=== PATIENT | male | born 1935 | race Caucasian/White ===

== ENCOUNTER 2016-06-23 10:11 | Inpatient (IN) | payer MEDICARE, OTHER ==
--- NOTE | ~2016-06-23 | HP ---
History And Physical [address] [address] NAME: DAYDAY SALINAS : 35 STATUS : ADM IN [facility]#: [id number] AGE: 80 ADM/REG DATE : 06/23/16 MR#: [id number] REPORT SERV DATE: 06/23/16 DICTATED BY: STEVIE GARCIA DATE: 06/23/16 REPORT STATUS : Draft TRANSCRIBED BY: MODL DATE: 06/23/16 DATE OF ADMISSION: 06/23/2016 CHIEF COMPLAINT: Shortness of breath. HISTORY OF PRESENT ILLNESS: The patient is an 80-year-old white male, who presented to [facility] with complaints of shortness of breath that has been progressive over the last two days. He reported that he is at baseline shortness of breath and uses 3 L of nasal cannula O2 in the home setting, but over the last two days, he has had significant shortness of breath and progressively getting worse. He is unable to lie flat in his bed. He has had some cough that is nonproductive of any sputum. He denies any fevers or chills. He has not had any chest pain per se. He denies any abdominal pain, nausea, or vomiting. He denies any paroxysmal nocturnal dyspnea as well. When he arrived at [facility], he was found to have more hypoxia and found to have an elevated BNP, and troponins were negative. He was thought to have congestive heart failure, so he has been referred to the hospital here for further treatment and evaluation. REVIEW OF SYSTEMS: Otherwise, 12-point review of systems is negative. 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 He also had a CVA in 1999 without any residual and obstructive sleep apnea and right carotid stenosis about 65%, no intervention at this time. He has hypothyroidism as well. PAST SURGICAL HISTORY: Significant for CABG x5 in 2006, left carotid endarterectomy in 2006, bilateral cataract surgery. ALLERGIES: CODEINE. HOME MEDICATIONS: Glipizide 10 mg once daily, Plavix 75 mg once daily, levothyroxine 50 mcg once daily, lisinopril 20 mg once daily, atenolol 25 mg once daily, Spiriva one capsule inhalation once daily, Invokana 100 mg once daily, NovoLog subcu 10 units prior to each meal, Lantus 20 units subcu at bedtime. SOCIAL HISTORY: He smoked up until age 55. He was smoking one to three packs per day since the age of 10s for a total of 45 years of smoking history. He denies use of alcohol or illicit substances. He is retired at this time. FAMILY HISTORY: Significant for a heart disease in the mother. PHYSICAL EXAMINATION: GENERAL: White male, sitting on the bed, appears to be in [id number] respiratory distress. He is awake and alert. He is oriented. VITAL SIGNS: Blood pressure upon arrival to the hospital 145/65; saturation of 94% on 3 L, History And Physical [id number] [place]. [address] NAME: DAYDAY SALINAS : 35 STATUS : ADM IN [facility]#: [id number] AGE: 80 ADM/REG DATE : 06/23/16 MR#: [id number] REPORT SERV DATE: 06/23/16 DICTATED BY: STEVIE GARCIA DATE: 06/23/16 REPORT STATUS : Draft TRANSCRIBED BY: WILFREDO DATE: 06/23/16 which is his baseline at home; temperature 97.3; pulse of 103. HEENT: Head is normocephalic and atraumatic. Pupils are equal, round, and reactive to light. Extraocular muscles are intact. Sclerae are anicteric. Conjunctivae are normal. Oropharynx without lesion. Dried mucous membranes. No lesions in the oropharynx. NECK: Supple. No jugular venous distention. No carotid bruits or thyromegaly is appreciated. Left carotid endarterectomy is noted. HEART: CABG scar is noted. Regular rate and rhythm. There is mild tachycardia. No murmurs, rubs, or gallops. PMI just inside the anterior axillary line. LUNGS: Diffuse bilateral crackles with wheezing and expiratory rhonchi are noted. No evidence of any focal consolidation. ABDOMEN: Slightly obese, soft, nontender. Good bowel sounds. No rebound or guarding. No organomegaly. EXTREMITIES: Without cyanosis or clubbing. 1+ edema in the left and 2+ edema in the right. Pulses equal and symmetrical. Otherwise, no lesions in the lower extremities. NEUROLOGICAL: Seems to be grossly intact. LABORATORY DATA: Labs as obtained from [facility], influenza was negative. White count was 21,000; hemoglobin of 14; hematocrit of 42; platelet count is 210,000. No left shift. Sodium 129, potassium of 4.1, chloride 92, bicarb 23, BUN is 24, creatinine is 1.36, glucose of 287, calcium of 9.8. Liver function studies are unremarkable. BNP was 3348. Lactic acid was 2.9. Troponin x2 was normal according to parameters at [facility]. EKG, new right bundle-branch block. No acute ST-T wave changes. IMPRESSION: 1. Acute on chronic systolic congestive heart failure, present on admission. 2. Acute on chronic hypoxic respiratory failure, present on admission. 3. Acute exacerbation of chronic obstructive pulmonary disease. 4. Hypertension. 5. Frd-sypscsb-vxdmtwlls diabetes. 6. Coronary artery disease, status post CABG. 7. Peripheral arterial disease, status post left CEA. 8. Hypothyroidism. PLAN: The patient will be admitted. IV Solu-Medrol will be given. IV Bumex will be given. Two-dimensional echocardiogram will be done. Serial troponins will be done. We will put the patient on aggressive nebulizing treatment. Sliding scale and Lantus insulin will be used. We will repeat labs and x-rays again. The patient remains a DNR. PAT/WILFREDO Stevie Garcia M.D. / [id number] History And Physical [address] [address] NAME: DAYDAY SALINAS : 35 STATUS : ADM IN [facility]#: [id number] AGE: 80 ADM/REG DATE : 06/23/16 MR#: [id number] REPORT SERV DATE: 06/23/16 DICTATED BY: STEVIE GARCIA DATE: 06/23/16 REPORT STATUS : Draft TRANSCRIBED BY: MODL DATE: 06/23/16 CC: Bouchra Mathis Timothy M James Hoback Jr., M.D.
--- NOTE | ~2016-06-23 | DS ---
Discharge Summary [facility] [address] [place]. [address] NAME: DAYDAY SALINAS : 35 STATUS : DIS IN PAT#: [id number] AGE: 80 ADM/REG DATE : 06/23/16 MR#: [id number] REPORT SERV DATE: 06/27/16 DICTATED BY: VENUS SHEADAYDAY SCOTT DATE: 06/26/16 REPORT STATUS : Draft TRANSCRIBED BY: MODL DATE: 06/26/16 ADMISSION DATE: 06/23/2016 DISCHARGE DATE: 06/26/2016 DISCHARGE DIAGNOSES: 1. Acute on chronic systolic CHF, EF 45%. 2. Acute exacerbation of chronic obstructive pulmonary disease. 3. Acute on chronic hypoxic respiratory failure. 4. Diabetes mellitus type 2. 5. Hypertension. 6. Acute kidney injury. 7. History of coronary artery disease and peripheral artery disease. 8. History of obstructive sleep apnea. 9. History of hypothyroidism. BRIEF HISTORY OF PRESENT ILLNESS: The patient is an 80-year-old male with the above history, who presented to [facility] due to shortness of breath and edema. For detailed history and physical examination, please see Dr. Steven's note from 06/23/2016. HOSPITAL COURSE: After admission, the patient was found to have acute respiratory failure, likely secondary to a combination of acute exacerbation of COPD plus CHF exacerbation. His chest x-ray showed no infiltrates but persistent hyperexpansion consistent with history of chronic obstructive pulmonary disease. His BNP was elevated at 247. He was diuresed as well as placed on steroids, DuoNebs, and inhalers. He is on 3 L at home and currently is stable on 3 L. Does still have some dyspnea with exertion. His edema is improved and was likely somewhat over-diuresed as his creatinine went from 1.7 up to 2.17 before coming back down to 1.9 with a small amount of IV fluid. He had been receiving lisinopril which was discontinued due to his EDWAR. He does not have any p.r.n. diuretic at home, so we will send him home with Bumex 1 mg p.o. daily p.r.n. edema. He will continue his steroid taper and will need close followup with his primary care physician, Dr. Archuleta, to repeat a BMP in the next week. Otherwise, the patient is stable for discharge. DISCHARGE MEDICATIONS: 1. Atenolol 25 mg p.o. daily. 2. Plavix 75 mg p.o. daily. 3. NovoLog 10 units subcu at bedtime. 4. Lantus 36 units subcu at bedtime. 5. Synthroid 50 mcg p.o. daily. 6. Singulair 10 mg p.o. daily. 7. Ventolin p.r.n. 8. Breo Ellipta one puff inhaled daily. 9. Glipizide 15 mg p.o. b.i.d. 10.Spiriva one cap inhaled daily. 11.DuoNeb 1 neb t.i.d. 12.Prednisone taper over 3 days. 13.Bumex 1 mg p.o. daily p.r.n. edema. Discharge Summary [address] [address] NAME: DAYDAY SALINAS : 35 STATUS : DIS IN PAT#: [id number] AGE: 80 ADM/REG DATE : 06/23/16 MR#: [id number] REPORT SERV DATE: 06/27/16 DICTATED BY: DAYDAY DONOVAN II DATE: 06/26/16 REPORT STATUS : Draft TRANSCRIBED BY: WILFREDO DATE: 06/26/16 14.His Invokana will be held given his EDWAR, defer to PCP for restarting. DISCHARGE INSTRUCTIONS: The patient will need to follow up with his PCP, Dr. Archuleta, in one week for followup BMP. PARISH/WILFREDO Dayday Donovan II, MD / [id number] CC: MD Mika Hare II, M.D.
[~2016-06-23 10:11] MED LIST: ADVAIR100 INH; ADVAIR250 INH; ATEN25 PO; BUM1 PO; GLUCOTRO10 PO; HALF81 PO; KLOR-CON M2020 MEQ PO; LANTUSCART SC; LEVOTHYROXIN50 MCG PO; NOVOLOG SC; PLAVIX PO; PRIN20 PO; SPIRIVA INH; VYTORIN 10/20 T1 TAB PO; ZYRTEC ALLGY10 MG PO
[2016-06-23] MEDS ORDERED: BREO ELLIPTA INH (13:39)
[2016-06-23] MEDS ORDERED: P10 PO (13:39)
[2016-06-23] MEDS ORDERED: SINGULAIR1 PO (13:39)
[2016-06-23] MEDS ORDERED: PLAVIX PO ×2 (13:40→13:41)
[2016-06-23] MEDS ORDERED: ATEN25 PO (13:40)
[2016-06-23] MEDS ORDERED: LEVOTHYROXIN50 MCG PO (13:40)
[2016-06-23] MEDS ORDERED: INVOKANA100 MG PO (13:41)
[2016-06-23] MEDS ORDERED: GLUCOTROL5 PO (13:41)
[2016-06-23] MEDS ORDERED: PRIN20 PO (13:41)
[2016-06-23] MEDS ORDERED: LANTUSCART SC (13:42)
[2016-06-23] MEDS ORDERED: NOVOPEN SC (13:42)
[2016-06-23] MEDS ORDERED: DUONEB INH (13:43)
[2016-06-23] MEDS ORDERED: SPIRIVA INH (13:43)
[2016-06-23] MEDS ORDERED: VENTOLIN HFA PO (13:43)
[2016-06-23 14:13] LABS: TROPONIN I 0.04 NG/ML (<0.05); ULTRASENSITIVE TSH 0.68 MCIU/ML (0.358-3.740)
[2016-06-23 15:19] LABS: PROCALCITONIN 0.45 ng/mL (<0.5)
[2016-06-24 05:55] LABS: BASOPHILS 0 %; BASOPHILS ABSOLUTE 0.01 10/3/uL (0.0-0.16); EOSINOPHILS 0 %; IMMATURE GRANULOCYTES 0.3 %; IMMATURE GRANULOCYTES ABSOLUTE 0.06 10/3/uL (0.0-0.11); LYMPHOCYTES 6.3 %; LYMPHOCYTES ABSOLUTE 1.27 10/3/uL (0.67-4.30); MEAN CORPUS HGB CONC 33.9 g/dL (32.0-36.0); MEAN CORPUSCULAR HEMOGLOB 30.6 pg (26.0-34.0); MEAN CORPUSCULAR VOLUME 90.4 fL (80-100); MEAN PLATELET VOLUME 11.2 fL (9.2-13.0); MONOCYTES 1.7 %; MONOCYTES ABSOLUTE 0.35 10/3/uL (0.21-1.20); NEUTROPHILS 91.7 %; NEUTROPHILS ABSOLUTE 18.48 10/3/uL (2.02-8.40); PLATELET COUNT 248 10/3/uL (150-400); RBC DISTRIBUTION WIDTH 13.4 % (12.0-16.0); RED CELL COUNT 4.57 10/6/uL (4.7-6.1)
[2016-06-24 05:56] LABS: HEMATOCRIT 41.3 % (40.0-51.0); MANUAL DIFF NO %; WHITE BLOOD CELLS 20.2 10/3/uL (4.5-10.5)
[2016-06-24 06:21] LABS: ALBUMIN 3.2 G/DL (3.5-5.0); CHLORIDE, SERUM 100 MMOL/L (96-112); CO2 (CARBON DIOXIDE) 27 MMOL/L (24-34); CREATININE 1.71 MG/DL (0.70-1.30); GFR AFRICAN AMERICAN 43 ML/MIN (>=60); GFR NON AFRICAN AMERICAN 37 ML/MIN (>=60); PHOSPHORUS, SERUM 4.7 MG/DL (2.5-4.5); POTASSIUM, SERUM 4.2 MMOL/L (3.5-5.3); SODIUM, SERUM 137 MMOL/L (135-148); TROPONIN I 0.04 NG/ML (<0.05)
[2016-06-24 06:22] LABS: BUN (BLOOD UREA NITROGEN) 43 MG/DL (6-23); CALCIUM, SERUM 9.8 MG/DL (8.5-10.4); GLUCOSE, SERUM 151 MG/DL (60-99)
[2016-06-25 02:58] LABS: BASOPHILS 0.1 %; BASOPHILS ABSOLUTE 0.01 10/3/uL (0.0-0.16); EOSINOPHILS 0 %; HEMOGLOBIN 15.5 g/dL (13.6-17.8); IMMATURE GRANULOCYTES 0.4 %; IMMATURE GRANULOCYTES ABSOLUTE 0.06 10/3/uL (0.0-0.11); LYMPHOCYTES 5.7 %; LYMPHOCYTES ABSOLUTE 0.79 10/3/uL (0.67-4.30); MEAN CORPUS HGB CONC 34.1 g/dL (32.0-36.0); MEAN CORPUSCULAR HEMOGLOB 31.1 pg (26.0-34.0); MEAN CORPUSCULAR VOLUME 91.2 fL (80-100); MEAN PLATELET VOLUME 11.3 fL (9.2-13.0); MONOCYTES 2.8 %; MONOCYTES ABSOLUTE 0.38 10/3/uL (0.21-1.20); NEUTROPHILS ABSOLUTE 12.53 10/3/uL (2.02-8.40); PLATELET COUNT 291 10/3/uL (150-400); RBC DISTRIBUTION WIDTH 13.2 % (12.0-16.0); RED CELL COUNT 4.99 10/6/uL (4.7-6.1); WHITE BLOOD CELLS 13.8 10/3/uL (4.5-10.5)
[2016-06-25 03:00] LABS: ALLENS TEST Pos; BE (BASE EXCESS) 1.3 MEQ/L (0 +/- 2.5); CARBOXYHEMOGLOBIN 0.2 % (0-3); DEVICE NC; HCO3 (ACTUAL BICARBONATE) 27.3 MEQ/L (23-27); HEMOBLOGIN CONTENT 15.8 G/DL (14-18); INSTRUMENT SERIAL # 35151; METHEMOGLOBIN 0.5 % (0-3); OPERATOR ID 30014; PCO2 (CO2 TENSION) 48 MMHG (35-45); PO2 (O2 TENSION) 81 MMHG (79-93); SAMPLE Arterial; pH 7.37 (7.37-7.43)
[2016-06-25 03:01] LABS: HEMATOCRIT 45.5 % (40.0-51.0); MANUAL DIFF NO %
[2016-06-25 03:15] LABS: CHLORIDE, SERUM 94 MMOL/L (96-112); CO2 (CARBON DIOXIDE) 29 MMOL/L (24-34); CREATININE 2.17 MG/DL (0.70-1.30); GFR AFRICAN AMERICAN 32 ML/MIN (>=60); GFR NON AFRICAN AMERICAN 28 ML/MIN (>=60); POTASSIUM, SERUM 4.8 MMOL/L (3.5-5.3); SODIUM, SERUM 135 MMOL/L (135-148)
[2016-06-25 03:30] LABS: BUN (BLOOD UREA NITROGEN) 62 MG/DL (6-23); GLUCOSE, SERUM 382 MG/DL (60-99)
[2016-06-26 06:30] LABS: BASOPHILS 0.1 %; BASOPHILS ABSOLUTE 0.02 10/3/uL (0.0-0.16); EOSINOPHILS 0 %; HEMATOCRIT 43.7 % (40.0-51.0); HEMOGLOBIN 14.6 g/dL (13.6-17.8); IMMATURE GRANULOCYTES 0.8 %; IMMATURE GRANULOCYTES ABSOLUTE 0.12 10/3/uL (0.0-0.11); LYMPHOCYTES ABSOLUTE 1.72 10/3/uL (0.67-4.30); MEAN CORPUS HGB CONC 33.4 g/dL (32.0-36.0); MEAN CORPUSCULAR HEMOGLOB 30.7 pg (26.0-34.0); MEAN CORPUSCULAR VOLUME 91.8 fL (80-100); MEAN PLATELET VOLUME 11.1 fL (9.2-13.0); MONOCYTES 11.3 %; MONOCYTES ABSOLUTE 1.77 10/3/uL (0.21-1.20); NEUTROPHILS 76.8 %; NEUTROPHILS ABSOLUTE 12.02 10/3/uL (2.02-8.40); PLATELET COUNT 283 10/3/uL (150-400); RBC DISTRIBUTION WIDTH 13.2 % (12.0-16.0); RED CELL COUNT 4.76 10/6/uL (4.7-6.1); WHITE BLOOD CELLS 15.7 10/3/uL (4.5-10.5)
[2016-06-26 06:31] LABS: MANUAL DIFF NO %
[2016-06-26 06:40] LABS: BUN (BLOOD UREA NITROGEN) 64 MG/DL (6-23); CALCIUM, SERUM 9.2 MG/DL (8.5-10.4); CHLORIDE, SERUM 97 MMOL/L (96-112); CO2 (CARBON DIOXIDE) 30 MMOL/L (24-34); GFR AFRICAN AMERICAN 38 ML/MIN (>=60); GFR NON AFRICAN AMERICAN 33 ML/MIN (>=60); GLUCOSE, SERUM 308 MG/DL (60-99); POTASSIUM, SERUM 4.7 MMOL/L (3.5-5.3); SODIUM, SERUM 136 MMOL/L (135-148)
[2016-06-26] MEDS ORDERED: BUM1 PO (13:41)
[2016-06-26] MEDS ORDERED: P20 PO ×2 (13:42→13:43)
== END 2016-06-26 15:00 | disposition home or self-care (01) | DRG 291 ==
LOC: 6NO 10:11
PROVIDERS: Internal Medicine
DX: I11.0 Hypertensive heart disease with heart failure (principal); J96.21 Acute and chronic respiratory failure with hypoxia; N17.9 Acute kidney failure, unspecified; J44.1 Chronic obstructive pulmonary disease with (acute) exacerbation; I50.23 Acute on chronic systolic (congestive) heart failure; E11.65 Type 2 diabetes mellitus with hyperglycemia; G47.33 Obstructive sleep apnea (adult) (pediatric); I25.10 Atherosclerotic heart disease of native coronary artery without angina pectoris; I73.9 Peripheral vascular disease, unspecified; E03.9 Hypothyroidism, unspecified; Z79.02 Long term (current) use of antithrombotics/antiplatelets; Z79.4 Long term (current) use of insulin; Z95.1 Presence of aortocoronary bypass graft; Z87.891 Personal history of nicotine dependence
CPT/HCPCS: 36600; 71010; 71020; 80048; 80069; 82805; 82947; 82962; 83880; 84145; 84443; 84484; 85025; 87449; 94640; A9270-GY; C8929; J2930; Q9957

== ENCOUNTER 2016-06-30 17:30 | Emergency (ER) | payer MEDICARE, OTHER ==
[2016-06-30 16:32] LABS: BASOPHILS 0.2 %; BASOPHILS ABSOLUTE 0.05 10/3/uL (0.0-0.16); EOSINOPHILS 0.2 %; EOSINOPHILS ABSOLUTE 0.04 10/3/uL (0.0-0.53); ER CBC TAT 0 Hrs 08 Mins; HEMATOCRIT 47.1 % (40.0-51.0); IMMATURE GRANULOCYTES 1.7 %; IMMATURE GRANULOCYTES ABSOLUTE 0.41 10/3/uL (0.0-0.11); LYMPHOCYTES 2.9 %; MANUAL DIFF NO %; MEAN CORPUSCULAR HEMOGLOB 30.7 pg (26.0-34.0); MEAN CORPUSCULAR VOLUME 90.2 fL (80-100); MEAN PLATELET VOLUME 10.7 fL (9.2-13.0); MONOCYTES 1.9 %; MONOCYTES ABSOLUTE 0.47 10/3/uL (0.21-1.20); NEUTROPHILS 93.1 %; NEUTROPHILS ABSOLUTE 22.88 10/3/uL (2.02-8.40); PLATELET COUNT 307 10/3/uL (150-400); RBC DISTRIBUTION WIDTH 12.5 % (12.0-16.0); RED CELL COUNT 5.22 10/6/uL (4.7-6.1); WHITE BLOOD CELLS 24.6 10/3/uL (4.5-10.5)
[2016-06-30 16:47] LABS: A/G RATIO 0.7 (0.7-1.9); ALBUMIN 2.9 G/DL (3.5-5.0); ALKALINE PHOSPHATASE 106 U/L (45-117); BUN (BLOOD UREA NITROGEN) 28 MG/DL (6-23); CALCIUM, SERUM 8.4 MG/DL (8.5-10.4); CHLORIDE, SERUM 91 MMOL/L (96-112); CO2 (CARBON DIOXIDE) 36 MMOL/L (24-34); CREATININE 1.41 MG/DL (0.70-1.30); GFR AFRICAN AMERICAN 54 ML/MIN (>=60); GFR NON AFRICAN AMERICAN 47 ML/MIN (>=60); GLUCOSE, SERUM 307 MG/DL (60-99); POTASSIUM, SERUM 4.6 MMOL/L (3.5-5.3); SGOT(AST) 18 U/L (5-40); SGPT(ALT) 41 U/L (5-65); SODIUM, SERUM 134 MMOL/L (135-148); TOTAL BILIRUBIN 0.9 MG/DL (0-1.2); TOTAL PROTEIN 6.9 G/DL (6.0-8.5)
[2016-06-30 16:49] LABS: BAND NEUTROPHILS 2 %; ER DIFF TAT 0 Hrs 25 Mins; MONOCYTES 1 %; MONOCYTES ABSOLUTE (CALC) 0.25 10/3/uL (0.21-1.20); NEUTROPHILS ABSOLUTE (CALC) 24.35 10/3/uL (2.02-8.40); PLATELET ESTIMATE ADQ (ADEQUATE); SEGMENTED NEUTROPHIL (0) 97 %; TOTAL NUCLEATED CELLS 100
[2016-06-30 16:50] LABS: RBC MORPHOLOGY NORM (NORMAL)
[~2016-06-30 17:30] MED LIST changes: +BREO ELLIPTA INH; +DUONEB INH; +GLUCOTROL5 PO; +INVOKANA100 MG PO; +NOVOPEN SC; +P10 PO; +P20 PO; +SINGULAIR1 PO; +VENTOLIN HFA PO
[2016-07-06 08:09] LABS: BE (BASE EXCESS) 7.5 MEQ/L (0 +/- 2.5); CARBOXYHEMOGLOBIN 1.1 % (0-3); DEVICE NC; HCO3 (ACTUAL BICARBONATE) 31.9 MEQ/L (23-27); INSTRUMENT SERIAL # 8087; METHEMOGLOBIN 0.2 % (0-3); PCO2 (CO2 TENSION) 43 MMHG (35-45); PO2 (O2 TENSION) 69 MMHG (79-93); SAMPLE Arterial; pH 7.49 (7.37-7.43)
[2016-07-06 08:10] LABS: ALLENS TEST Pos
== END 2016-06-30 19:02 | disposition home or self-care (01) ==
LOC: ER 17:30
PROVIDERS: Nurse Practitioner Family
DX: J44.1 Chronic obstructive pulmonary disease with (acute) exacerbation (principal); I10 Essential (primary) hypertension; I50.9 Heart failure, unspecified; Z95.1 Presence of aortocoronary bypass graft; E11.9 Type 2 diabetes mellitus without complications; E03.9 Hypothyroidism, unspecified; Z88.5 Allergy status to narcotic agent; Z79.899 Other long term (current) drug therapy
CPT/HCPCS: 36600; 71010; 80053; 82805; 85025; 87040; 87070; 87205; 93005; 94640; 99285